=== PATIENT | male | born 1960 | race Caucasian/White ===

== ENCOUNTER 2019-09-04 10:59 | Inpatient (IN) ==
[2019-09-04] MEDS ORDERED: ASPIRIN PO ONE (11:15)
--- NOTE | 2019-09-04 11:20 | EKG Report ---
Test Performed on : 09/04/2019 11:07:12 AM Test Reason : CP Blood Pressure : / mmHG Vent. Rate : 077 BPM Atrial Rate : 077 BPM P-R Int : 178 ms QRS Dur : 100 ms QT Int : 384 ms P-R-T Axes : 033 053 056 degrees QTc Int : 434 ms Normal sinus rhythm. Early repolarization Normal ECG When compared with ECG of 06-FEB-2018 07:22, No significant change was found Unconfirmed Result
--- NOTE | 2019-09-04 11:34 | Diag Imaging Result Doc PS360 ---
EXAM: CHEST-2 VIEWS HISTORY: CP TECHNIQUE: Chest two views COMPARISON: 06/06/2019 FINDINGS: The lungs are well expanded except for minimal scarring or atelectasis in the left base. The heart is not enlarged. The vessels are not distended. There are no infiltrates. No pleural effusions. IMPRESSION: No acute abnormality. Electronically signed by Maynor Rutledge 09/04/2019 11:31 AM
[2019-09-04 12:21] LABS: BASO# 0.02 X1000 (0.0-0.2); BASO% 0.2 % (0.0-0.8); EOS# 0.02 X1000 (0.0-0.7); EOS% 0.2 % (0.0-10.0); HEMATOCRIT 43.6 % (42.0-52.0); HEMOGLOBIN 14.6 g/dL (14.0-18.0); IMM GRAN# 0.02 X1000 (0.0-0.04); IMM GRAN% 0.2 % (0.0-0.5); LYMPH# 0.82 X1000 (1.2-3.4); LYMPH% 9.4 % (20.5-51.1); MCH 29.8 PG (27-31); MCHC 33.5 g/dL (33-37); MONO# 0.74 X1000 (0.11-0.59); MONO% 8.5 % (1.7-9.3); MPV 10.3 FL (7.4-10.4); NEUT# 7.07 X1000 (1.4-6.5); NEUT% 81.5 % (42.2-75.2); PLT 210 X1000 (130-400); RDW 13.5 % (11.5-14.5); WBC 8.69 X1000 (4.8-10.8)
[2019-09-04 12:29] LABS: INR 1.06; PROTIME 13.9 Seconds (11.0-16.0)
[2019-09-04 12:30] LABS: AGAP 12; ALB/GLOB RATIO 2.1; ALBUMIN 4.7 g/dL (3.5-5.0); ALKALINE PHOSPHATASE 75 U/L (32-122); BUN 10 mg/dL (8-22); CALCIUM 9.4 mg/dL (8.8-10.2); CHLORIDE 99 mmol/L (98-107); CK PROFILE 115 U/L (24-204); COSMO 269; ESTIMATED GFR > 60; GLUCOSE 96 mg/dL (70-104); GOT 19 U/L (10-34); GPT 12 U/L (10-44); POTASSIUM 4.2 mmol/L (3.5-5.1); PTT 32.5 Seconds (22.3-41.8); SODIUM 135 mmol/L (136-145); TCO2 24 mmol/L (25-35); TOTAL BILIRUBIN 1.46 mg/dL (0.20-1.00); TOTAL PROTEIN 6.9 g/dL (6.3-8.3)
[2019-09-04] MEDS ORDERED: NITROGLYCERIN TOP ONE (12:54)
--- NOTE | 2019-09-04 12:54 | PROVIDER DOCUMENTATION ---
HPI-Chest Pain - General Chief Complaint: Chest Pain Stated Complaint: CP,SOB,H/O CAD, Time Seen by Provider: 09/04/19 12:27 Source: patient Allergies/Adverse Reactions: Patient Allergies Allergy/AdvReac Type Severity Reaction Status Date / Time No Known Allergies Allergy Verified 12/12/17 20:46 Home Medications: Home Medication List Medication Instructions Recorded Confirmed Last Taken Type Aspirin 81 mg PO DAILY #30 chewtab 02/07/18 Unknown Rx Guaifenesin/Dextromethorphan 5 ml PO TID PRN PRN #240 ml 02/07/18 Unknown Rx [Tussin Dm Liquid] Ketorolac [Toradol] 10 mg PO TID PRN #15 tablet 02/07/18 Unknown Rx Omeprazole [Prilosec] 40 mg PO DAILY #30 capsule. 02/07/18 Unknown Rx PRAVAstatin [Pravachol] 40 mg PO QHS #90 tab 02/07/18 Unknown Rx - History of Present Illness-CP Nature of Presenting Problem: Patient is a 59 yowm who complains of mid sternal chest pain radiating to both sides of neck since 0200. The pain is waxing and waning and exacerbated by exertion. It is associated with SOB. Pain currently 2/10. He denies cough, fever, or any other complaints and is non-toxic in appearance. Review of Systems - Adult - REVIEW OF SYSTEMS - ADULT Constitutional: reports: no symptoms reported. denies: chills, fever Eyes: reports: no symptoms reported Ears, Nose, Mouth & Throat: reports: no symptoms reported Cardiovascular: reports: see HPI. denies: edema, palpitations, syncope Respiratory: reports: see HPI Gastrointestinal: reports: no symptoms reported Genitourinary: reports: no symptoms reported Musculoskeletal: reports: no symptoms reported Integumentary: reports: no symptoms reported Neurological: reports: no symptoms reported Psychiatric: reports: no symptoms reported Endocrine: reports: no symptoms reported Hematologic/Lymphatic: reports: no symptoms reported Allergic/Immunologic: reports: no symptoms reported All Other Systems: Reviewed and Negative Past History - Adult - PAST MEDICAL HISTORY-ADULT Review of Records: reports: Old Records Reviewed, Nursing Assessment Review, Medications Reviewed, Social history reviewed & non-contributory. Major Childhood Illnesses: reports: denies history Cardiovascular: reports: hyperlipidemia Respiratory: reports: denies history Gastrointestinal: reports: denies history Obstetrical/Gynecological: reports: denies history Genitourinary: reports: denies history Musculoskeletal: reports: denies history Neurological: reports: denies history Endocrine/Immune: reports: denies history Other Conditions: reports: denies history - PRIOR SURGERIES/PROCEDURES Surgical/Procedure History: reports: reviewed, not pertinent - IMMUNIZATION STATUS Childhood Immunizations: See Nurse Assessment Flu Vaccine: See Nurse Assessment - FAMILY HISTORY Family History: CAD under 55yo (brother) - SOCIAL HISTORY Smoking: non-smoker Physical Exam-General - PHYSICAL EXAM-ADULT Initial Vital Signs Reviewed: Yes - CONSTITUTIONAL General Appearance: alert, no apparent distress. negative: lethargic, slow to respond - EYES Eyes: PERRL/EOMI, pink conjunctivae - HEAD, EARS, NOSE, MOUTH & THROAT HENMT: normocephalic/atraumatic, moist mucous membranes - NECK Neck: full range of motion, supple, normal inspection - RESPIRATORY Respiratory: chest non-tender, lungs clear, normal breath sounds, no respiratory distress, no accessory muscle use - CARDIOVASCULAR Cardiovascular: normal peripheral pulses, regular rate, rhythm, no edema, no gallop, no JVD, no murmur - GASTROINTESTINAL (ABDOMEN) Abdominal Exam: normal bowel sounds, non tender, soft - MUSCULOSKELETAL Back Exam: normal inspection Extremity: normal range of motion, non-tender, normal gait, normal inspection - SKIN Integumentary: normal color, warm/dry. negative: cyanosis, diaphoresis, jaundice, mottled, pallor - NEUROLOGIC Neurologic: grossly normal, no motor/sensory deficits - PSYCHIATRIC Psych/Mental Status: normal mood/affect, normal thought content, normal thought process, oriented x 3 - HEART Score HEART Score: History: Highly Suspicious HEART Score: ECG: Non-Specific Repolarization Disturbance/LBBB/PM HEART Score: Age: 45-65 Years HEART Score: Risk Factors for Atherosclerotic Disease: > or = 3 Risk Factors or History of Atherosclerotic Disease HEART Score: Troponin: < or = Normal Limit Total HEART Score:: 6 Progress - PLAN OF CARE/RESULTS Progress/Plan/Lab Results: Vital Signs - 8 hr 09/04/19 11:07 Temperature 98.2 F Pulse Rate 77 Respiratory Rate 18 Blood Pressure 137/80 O2 Sat by Pulse Oximetry 98 Laboratory Results - last 24 hr 09/04/19 09/04/19 09/04/19 12:00 12:00 12:00 WBC 8.69 RBC 4.90 Hgb 14.6 Hct 43.6 MCV 89.0 MCH 29.8 MCHC 33.5 RDW Std Deviation 13.5 Plt Count 210 MPV 10.3 Immature Gran % (Auto) 0.2 Neut % (Auto) 81.5 H Lymph % (Auto) 9.4 L [place] % (Auto) 8.5 Eos % (Auto) 0.2 Baso % (Auto) 0.2 Immature Gran # (Auto) 0.02 Neut # (Auto) 7.07 H Lymph # (Auto) 0.82 L [place] # (Auto) 0.74 H Eos # (Auto) 0.02 Baso # (Auto) 0.02 PT INR PTT (Actin FS) Sodium 135 L Potassium 4.2 Chloride 99 Carbon Dioxide 24 L Anion Gap 12 BUN 10 Creatinine 1.0 Estimated GFR/1.73 m2 > 60 BUN/Creatinine Ratio 10 Glucose 96 Calculated Osmolality 269 Calcium 9.4 Total Bilirubin 1.46 H AST 19 ALT 12 Alkaline Phosphatase 75 Creatine Kinase 115 Troponin T Qou-V-Maifwvwrulj Pept 94 Total Protein 6.9 Albumin 4.7 Globulin 2.2 Albumin/Globulin Ratio 2.1 09/04/19 09/04/19 12:00 12:00 WBC RBC Hgb Hct MCV MCH MCHC RDW Std Deviation Plt Count MPV Immature Gran % (Auto) Neut % (Auto) Lymph % (Auto) [place] % (Auto) Eos % (Auto) Baso % (Auto) Immature Gran # (Auto) Neut # (Auto) Lymph # (Auto) [place] # (Auto) Eos # (Auto) Baso # (Auto) PT 13.9 INR 1.06 PTT (Actin FS) 32.5 Sodium Potassium Chloride Carbon Dioxide Anion Gap BUN Creatinine Estimated GFR/1.73 m2 BUN/Creatinine Ratio Glucose Calculated Osmolality Calcium Total Bilirubin AST ALT Alkaline Phosphatase Creatine Kinase Troponin T < 0.010 Gyd-A-Dqbytwdjmrp Pept Total Protein Albumin Globulin Albumin/Globulin Ratio Orders Category Date Time Status Cardiac Monitoring DIRECTED Care 09/04/19 11:15 Active Oxygen Therapy- ED Nursing DIRECTED Care 09/04/19 11:15 Active Saline Loc NOW Care 09/04/19 11:15 Active CHEST-2 VIEWS [RAD] Stat Exams 09/04/19 11:15 Completed CBC WITH ELECTRONIC DIFF [HEME] Stat Lab 09/04/19 12:00 Completed CK PROFILE [SP CHEM] Stat Lab 09/04/19 12:00 Completed COMPREHENSIVE METABOLIC PANEL [CHEM] Stat Lab 09/04/19 12:00 Completed PRO B-NATRIURETIC PEPTIDE Stat Lab 09/04/19 12:00 Completed PROTIME WITH INR [COAG] Stat Lab 09/04/19 12:00 Completed PTT [COAG] Stat Lab 09/04/19 12:00 Completed TROPONIN T Stat Lab 09/04/19 12:00 Completed Aspirin Med 09/04/19 11:15 Discontinued 325 mg PO NOW ONE Nitroglycerin Med 09/04/19 12:54 Discontinued 0.5 inch TOP NOW ONE CP/SOB/Palp >45 yrs of Age Stat Oth 09/04/19 11:15 Ordered EKG [EKG] Stat Ther 09/04/19 11:15 Draft Result Diagrams: 09/04/19 12:00 09/04/19 12:00 - REASSESSMENT Reassessment #1 Time Reassessed: 12:55 Status: other (Admitting HPS paged.) - EKG 1 Time of EKG reading by physician:: 11:10 EKG Read and Signed by:: Laine Man EKG Interpretation (*Must complete 3 of following elements*): Abnormal Rate: 77 Rhythm: NSR- early repolarization QRS: normal - XRAY 1 XRAY Study: Chest ([facility] - [address] , [address] [place] [id number] [facility] - [address] [place] [address] Department of Imaging Patient: MARA HERMAN Date: 09/04/19#: [id number] : 1960DM Status: PRE ERAcct#: [id number] Age/Sex: 59/MRoom/Bed: Loc: ED Ordering Physician: Laine Man MD Family Physician: Gordon Shaw MD Reason for Procedure: CP _ __ Signed EXAM: CHEST-2 VIEWS HISTORY: CP TECHNIQUE: Chest two views COMPARISON: 06/06/2019 FINDINGS: The lungs are well expanded except for minimal scarring or atelectasis in the left base. The heart is not enlarged. The vessels are not distended. There are no infiltrates. No pleural effusions. IMPRESSION: No acute abnormality. Electronically signed by Maynor Rutledge 09/04/2019 11:31 AM 09/04/19 1131 Interpreting Physician: Maynor Rutledge MD Dictated Date/Time: 09/04/19 1130 cc: Laine Man MD; Gordon Shaw MD) - CONSULTS/PCP/HOSPITALIST Notification #1 *Consult/PCP/Hospitalist*: BIBIANA Metzger [employer] ADMINISTRATOR Time Discussed: 13:01 Reason/Comments: admission- cp Consult Disposition: Will see in ED, Admit Departure - Departure Date of Disposition Decision: 09/04/19 Time of Disposition Decision: 13:01 DIAGNOSIS: Chest pain Qualifiers: Chest pain type: unspecified Qualified Code(s): R07.9 - Chest pain, unspecified Disposition: ADMITTED INPATIENT 09 Certified Medical Emergency: Emergent Condition: Stable Referrals and Follow-Ups: Gordon Shaw MD [Primary Care Provider] - - Critical Care Note This patient required my direct & personal management of CC.: No Attestation - Physician/ JENSEN Attestation Patient care was provided by Advanced Practice Provider:: Yes Advanced Practice Provider:: Kimberly Ríos Advanced Practice Provider documentation review:: The Mid-level provider erick bradshaw, treatment plan and medical decision making was reviewed by the physician who agrees with all treatment and medical decision making by the P. The physician spent face to face time with patient:: No Advanced Practice Provider documentation review:: Supervising physician onsite and consulted in the evaluation and care of this patient. The physician did not have a face to face encounter with the patient.
[2019-09-04] MEDS ORDERED: ZOFRAN IV PRN (14:15)
[2019-09-04] MEDS ORDERED: TYLENOL PO PRN (14:15)
[2019-09-04] MEDS ORDERED: MORPHINE IV PRN (14:15)
--- NOTE | 2019-09-04 14:38 | HISTORY AND PHYSICAL ---
HISTORY OF PRESENT ILLNESS: Mr. Santos really has no significant past medical history. He was admitted back in January 2018. He was followed by Dr. Dion Murphy but is no longer with him, I do not believe. He works at a chemical factory. He was working around the house. No problems but this morning noted that he had chest pain that was more pleuritic in nature, similar to the pain he had back in January 2018 when he was diagnosed with pericarditis and apparently, there was suspicion of some stenosis in the right coronary artery. He is on blood pressure medicines and on cholesterol medicine which was started back in January. Denies any surgery. ALLERGIES: No known drug allergies. FAMILY HISTORY: Negative for heart disease in the family. SOCIAL HISTORY: Still rides his motorcycle. Works. Has not had any history of alcohol or illicit drugs. PHYSICAL EXAMINATION: VITAL SIGNS: Today, temperature 98.2 degrees, pulse 78, respirations 22, blood pressure 108/66. HEENT: Pupils are equal and round. No distended neck veins. LUNGS: Lungs are clear in all lung hunt. CARDIOVASCULAR EXAMINATION: Regular rhythm and rate without murmur or S3. ABDOMEN: Soft. SKIN: Warm and dry. Height 5 feet 11 inches. CVP less than 6 cm. I could not hear a pericardial rub. He is more comfortable sitting up and the pain is definitely worse when he takes a deep breath. Skin is warm and dry. No rashes. Oral and nasal mucosa without any lesions. No thyromegaly. Neck is supple. BLOOD WORK: White count 8690, hematocrit 43, platelet count 210,000. Sodium 135, potassium 4.2, chloride 99, BUN 10, creatinine 1.0, calcium 9.4. Total bilirubin 1.46, AST 19, ALT is 12, alkaline phosphatase is 75, albumin 4.7. Prothrombin time is 13.9, INR is 1.06, PTT was 32. Chest x-ray reported no acute abnormality. EKG, really normal sinus rhythm, suggestion of early repolarization. I do not see any definitive ST-segment changes nor do I see diffuse ST-segment elevation. ASSESSMENT AND PLAN: 1. Chest pain which sounds like it could be pleuritic in nature. He has had an episode that he says but they thought he had pericarditis in the past. Not sure of the etiology of that so we will check serial cardiac enzymes. We will check an ELOY and rheumatoid factor. We will check a sedimentation rate and C-reactive protein. We will get a T4, TSH, B12, and folate. We will get an echocardiogram to look at the pericardium. Ask cardiology to help. Get serial electrocardiograms as well. 2. Hypertension. Blood pressure has been well controlled by his report. Blood pressure looks good today. 3. Hypercholesterolemia. He reported that he has got a very high HDL so I am not sure if cholesterol is really an issue for him. MEDICATIONS: Medications he is supposed to be taking at home - aspirin 81 mg a day, he takes Pravachol 40 mg at bedtime. I do not see where he is on any blood pressure medicines. We will continue the aspirin for now at 81 mg a day and we will try a little bit of colchicine 0.6 mg twice a day and see what his echocardiogram looks like and see what serial enzymes show. cc: Orlin Orozco MD
[2019-09-04] MEDS: COLCRYS PO SCH ×2 (15:38→20:34)
[2019-09-04] MEDS: LOVENOX SUBQ SCH (15:38)
--- NOTE | 2019-09-04 16:09 | ECHO REPORT ---
ORDER DATE: 09/04/2019 INDICATION: Chest pain. FINDINGS: 1. Right atrium appears normal in size. 2. Mild tricuspid regurgitation. The RV systolic pressure is 36. 3. Normal RV size and systolic function. 4. No pulmonic insufficiency. 5. Normal left atrial size with a volume index of 23. 6. No mitral prolapse. Trace mitral regurgitation. No mitral stenosis. 7. Normal LV size, end-diastolic dimension of 4.4. Normal wall thicknesses with a posterior and interventricular septal wall thickness of 0.9 and 1.0 cm respectively. Normal LV systolic function. The estimated EF is 60 to 65% with normal wall motion. 8. Aortic valve opens well. It appears trileaflet. There is no significant degree of stenosis or insufficiency. On some views there is evidence for some chordal MARIUSZ but there does not appear to be any significant left ventricular outflow tract gradient. 9. Aorta appears normal in visualized segments. 10. No pericardial effusion seen. cc: MD Domenica Vanegas CRNP
[2019-09-04] MEDS: NITROGLYCERIN SL PRN ×2 (16:39→18:44)
[2019-09-04] MEDS ORDERED: PRAVACHOL PO SCH (21:00)
[2019-09-04] MEDS: MOTRIN PO SCH (21:57)
--- NOTE | 2019-09-05 00:23 | CONSULTATION ---
DATE OF CONSULTATION: 09/04/2019 IMPRESSION: 1. Acute pericarditis. 2. Hypertension. 3. Hypercholesterolemia. RECOMMENDATIONS: 1. Agree with colchicine. 2. Add nonsteroidal anti-inflammatory medication. HISTORY: This 59-year-old white male with past history of previous suspected pericarditis about 18 months ago was admitted for further [*] chest pain. He describes 1 set recently of sharp central chest pain that is worse with deep breath. It is aggravated by lying flat and relieved by sitting forward. He has had modest nonproductive cough. There has been no fever. There has been no other chest discomfort. He has not had any recent viral symptomatology beyond a mild nonproductive cough. PAST MEDICAL HISTORY: 1. Previous pericarditis. 2. Hypertension. 3. Hyperlipidemia. ALLERGIES: He has no known drug allergies. MEDICATIONS PRIOR TO ADMISSION: As listed. SOCIAL HISTORY: The patient is nonsmoker and does not use alcohol. FAMILY HISTORY: Negative for premature coronary disease. REVIEW OF SYSTEMS: Pulmonary: Noncontributory beyond history of present illness. Gastrointestinal: Noncontributory beyond history of present illness. Constitutional: Negative for fever or chills. Remainder review of systems negative/noncontributory beyond history of present illness with 14 total systems reviewed. PHYSICAL EXAMINATION: General: This is a pleasant, middle-aged white male in no distress on room air. Vital signs: Blood pressure 101/58, heart rate 75, oxygen saturation 98% on room air. HEENT: Extraocular movements appear intact. Mucous membranes are moist. Neck: Supple without jugular venous distention. There are no carotid bruits. Chest: Clear to auscultation bilaterally. Cardiac: Reveals a regular rate and rhythm without appreciable murmur or gallop. No rub could be appreciated. Abdomen: Soft. Bowel sounds are normal. Extremities: Without edema. Neurologic: Reveals him to be alert and fully oriented. Speech is fluent. Moves all 4 extremities equally well. Skin: Warm and dry. Psychiatric: Reveals mood to be appropriate. PERTINENT DATA: Twelve lead EKG demonstrates sinus rhythm and diffuse ST elevation, consider pericarditis. LABORATORY DATA: Includes a white blood cell count 8.69, hematocrit 43.6, hemoglobin 14.6, platelet count 210,000. Sodium 135, potassium 4.2, chloride 99, carbon dioxide 24, BUN 10, creatinine 1.0. Glucose 96. Initial troponin T less than 0.01. Followup troponin T less than 0.01. cc: Andrea Lang MD
[2019-09-05 07:15] LABS: AGAP 13; ALB/GLOB RATIO 1.4; ALBUMIN 3.9 g/dL (3.5-5.0); ALKALINE PHOSPHATASE 63 U/L (32-122); BUN 11 mg/dL (8-22); CALCIUM 8.9 mg/dL (8.8-10.2); CHLORIDE 103 mmol/L (98-107); CHOLESTEROL 120 mg/dL (0-200); COSMO 275; ESTIMATED GFR > 60; GLUCOSE 99 mg/dL (70-104); GOT 13 U/L (10-34); GPT 9 U/L (10-44); HDL 66 mg/dL (35-55); LDL 39 mg/dL; POTASSIUM 3.6 mmol/L (3.5-5.1); SODIUM 138 mmol/L (136-145); TCO2 22 mmol/L (25-35); TOTAL BILIRUBIN 1.94 mg/dL (0.20-1.00); TOTAL PROTEIN 6.6 g/dL (6.3-8.3); TRIGLYCERIDES 75 mg/dL (39-160); VLDL 15 mg/dL
[2019-09-05 07:36] LABS: BASO# 0.02 X1000 (0.0-0.2); BASO% 0.3 % (0.0-0.8); EOS# 0.06 X1000 (0.0-0.7); EOS% 0.8 % (0.0-10.0); HEMATOCRIT 38.7 % (42.0-52.0); HEMOGLOBIN 13.2 g/dL (14.0-18.0); IMM GRAN# 0.02 X1000 (0.0-0.04); IMM GRAN% 0.3 % (0.0-0.5); LYMPH# 1.14 X1000 (1.2-3.4); LYMPH% 15.8 % (20.5-51.1); MCH 30.4 PG (27-31); MCHC 34.1 g/dL (33-37); MCV 89.2 FL (81-99); MONO# 1.02 X1000 (0.11-0.59); MONO% 14.2 % (1.7-9.3); MPV 10.7 FL (7.4-10.4); NEUT# 4.94 X1000 (1.4-6.5); NEUT% 68.6 % (42.2-75.2); PLT 187 X1000 (130-400); RBC 4.34 XMIL (4.7-6.1); RDW 13.3 % (11.5-14.5)
[2019-09-05] MEDS: COLCRYS PO SCH (08:15)
[2019-09-05] MEDS: MOTRIN PO SCH ×3 (08:15→16:08)
--- NOTE | 2019-09-05 08:49 | EKG Report ---
Test Performed on : 09/05/2019 07:42:15 AM Test Reason : pericarditis Blood Pressure : / mmHG Vent. Rate : 061 BPM Atrial Rate : 061 BPM P-R Int : 172 ms QRS Dur : 100 ms QT Int : 414 ms P-R-T Axes : 044 070 045 degrees QTc Int : 416 ms Normal sinus rhythm. Acute pericarditis Abnormal ECG When compared with ECG of 04-SEP-2019 11:07, (Unconfirmed) No significant change was found Confirmed by Nicole QUEEN, Rony Herrera ([id number]) on 09/06/2019 7:42:22 PM
[2019-09-05] MEDS ORDERED: PRILOSEC PO SCH (09:00)
[2019-09-05] MEDS ORDERED: ASPIRIN EC PO SCH (09:00)
--- NOTE | 2019-09-05 10:14 | PROGRESS NOTE ---
DATE: 09/05/2019 SUBJECTIVE: Mr. Santos has no further pain. No discomfort. Breathing comfortably. OBJECTIVE: Temperature 97.7 degrees, pulse 64, respirations 18, and blood pressure 101/54. Pupils are equal and round. Lungs are clear in all lung hunt. Cardiovascular exam regular rhythm and rate without murmur or S3. Abdomen is soft. Skin is warm and dry. Urine output was 1500 mL. Blood work from this morning, white count 7200, hematocrit 38 and platelet count 187,000. Chemistry: Sodium 138, potassium 3.6, chloride 103, BUN 11, and creatinine 1.0. Troponin has been less than 0.01 on both sets. ASSESSMENT AND PLAN: He has pericarditis, I am not sure of etiology, it seems to symptomatically be improved. Hemodynamically, he looks stable. His left ventricle looks good. I will discuss with Cardiology, and see if he can maybe go home today. Blood pressure well controlled. History of hypertension. Right now, he is on colchicine and getting Motrin 600 mg t.i.d. He is also on aspirin. He just got 1 dose yesterday and baby aspirin 81 mg a day. cc: Orlin Orozco MD
[2019-09-05 15:40] VITALS: BP 98/62
--- NOTE | 2019-09-05 16:03 | DISCHARGE SUMMARY ---
ADMISSION DATE: 09/04/2019 DISCHARGE DATE: HISTORY AND HOSPITAL COURSE: This is a 59-year-old with no significant past medical history. Back in January 2018 he was admitted and had pleuritic pain and it turned out to be suspected pericarditis. No specific etiology and it resolved pretty much spontaneously with nonsteroidal anti-inflammatory. He was followed by Dr. Vazquez. They thought there might be some stenosis in the right coronary artery. He presented this time again with pleuritic pain. Really no sign of cardiac ischemia, but he had pleuritic discomfort, felt better when he was leaning forward, and he was admitted. He had an echocardiogram which left ventricular size was normal. Ejection fraction 60 to 65%. No pericardial effusion. No significant valvular dysfunction and normal right-sided function as well. He was given some colchicine and nonsteroidal anti-inflammatory and it seemed to resolve. No further pain. He was requesting to go home. We will send him home. He will follow up with Dr. Vazquez. DISCHARGE MEDICATIONS: He will be on aspirin 81 mg a day. I will give him actually probenecid combination with Colcrys that he can take twice a day if he gets this kind of pleuritic pain and then he can take Motrin 600 mg p.o. t.i.d. p.r.n. pleuritic pain as well. He is on Pravachol 40 mg a day. He was taking phentermine 37.5 mg p.o. daily. I think he can return to that. He was taking Lopressor 25 mg a day, Prilosec 40 mg a day, Pravachol 40 mg a day. cc: Orlin Orozco MD
[2019-09-05] MEDS: LOVENOX SUBQ SCH (16:08)
== END 2019-09-05 17:08 | disposition home or self-care (01) | DRG 316 ==
LOC: ED 10:59 → 4N 11:00
PROVIDERS: ATTEND Emergency Medicine